=== PATIENT | male | born 1955 | race Caucasian/White ===

== ENCOUNTER 2023-09-10 07:40 | Outpatient (REF) | payer MEDICARE, SELFPAY ==
--- NOTE | ~2023-09-10 | CT_ITS ---
EXAMINATION: CT SINUSES without contrast CLINICAL INFORMATION: Nasal septal deviation. COMPARISON: None TECHNIQUE: Multidetector helical imaging was performed in the axial plane with generation of coronal and sagittal reformatted images. This CT examination was performed using dose optimization techniques as appropriate, variously including the following: *Automated exposure control *Adjustment of mA and/or kV according to patient size (this includes techniques or standardized protocols for targeted exams where dose is matched to indication/reason for exam; i.e. extremities or head) *Use of iterative reconstruction technique CONTRAST: Noncontrasted study. FINDINGS: MAXILLARY: Clear OSTIOMEATAL UNITS: Clear ETHMOIDAL AIR CELLS: Clear SPHENOIDAL AIR CELLS: Clear FRONTAL AIR CELLS AND DRAINAGES: Clear NASAL CAVITY: Bilateral aerated middle turbinates, conchal bullosa very mild subtle deviation of nasal septum to the right probably of no clinical significance. SURROUNDING SOFT TISSUE: The adjacent orbits and the surrounding soft tissue is otherwise normal. FRONTAL SINUSES AND DRAINAGE PATHWAYS: Normal. MAXILLARY SINUSES AND DRAINAGE PATHWAYS: Normal. The infundibula are patent. ADDITIONAL RELEVANT FINDINGS: The TMJs articulate normally. The orbits and skull base soft tissues are unremarkable. The middle ear cavities and mastoid air cells are clear. Limited evaluation demonstrates no acute intracranial findings. CT/CT sinus wo IV con IMPRESSION: 1. Very mild deviation of nasal septum to the right probably of no clinical significance. 2. The paranasal sinuses are clear. 3. Ostiomeatal units are patent. 4. Bilaterally aerated middle turbinates, conchal bullosa, these are normal developmental.
== END 2023-09-10 07:41 | disposition home or self-care (01) ==
LOC: HO.CT 07:40
PROVIDERS: PCP Student in an Organized Health Care Education/Training Program; Visit Provider Otolaryngology
DX: J34.2 Deviated nasal septum (principal); J33.0 Polyp of nasal cavity
CPT/HCPCS: 70486